=== PATIENT | male | born 1945 | race Caucasian/White ===

== ENCOUNTER 2017-05-19 06:11 | Inpatient (IN) ==
[2017-05-14 12:51] LABS: Appearance,Urine CLEAR; Bilirubin,Urine NEG (NEG); Color,Urine YELLOW; Glucose,Urine (UA) NEGATIVE (NEG); Leukocyte Esterase,Urine NEG /uL (NEG); Nitrate,Urine NEG (NEG); Protein,Urine NEG (NEG); Specific Gravity,Urine 1.011 (1.000-1.035); Urine Blood NEG mg/dL (<0.03); Urobilinogen,Urine NEG (NEG)
[2017-05-14 13:33] LABS: Basophils # (Auto) 0 K/mcL (0.0-0.3); Basophils % (Auto) 0.5 % (0.0-2.0); Eosinophils # (Auto) 0.1 K/mcL (0.0-0.7); Eosinophils % (Auto) 2.1 % (0.0-7.0); Granulocytes % (Auto) 67.3 % (38.0-78.0); Lymphocytes # (Auto) 1.2 K/mcL (1.5-4.8); Lymphocytes % (Auto) 22.9 % (15.5-49.0); Mean Cell Volume 91.6 fL (80.0-100.0); Mean Corpuscular Hemoglobin 31.1 pg (26.0-34.0); Monocytes # (Auto) 0.4 K/mcL (0.1-0.9); Monocytes % (Auto) 7.2 % (1.0-12.0); Platelet Count 204 K/mcL (140-440); RBC 4.99 M/mcL (4.50-5.90); Red Cell Distribution Width 13.6 % (11.5-14.5)
[2017-05-14 13:54] LABS: Blood Urea Nitrogen 22 mg/dl (8-23)
[~2017-05-19 06:11] MED LIST: PREGABALIN 75 MG CAPSULE PO SCH; oxyCODONE 10 MG TAB.ER.12H PO SCH
[2017-05-19] MEDS ORDERED: KETOROLAC 30 MG, ROPIVACAINE HCL/PF 49.5 ML, EPINEPHrine 0.5 MG, 0.9 % SODIUM CHLORIDE ... IJ SCH (06:30)
[2017-05-19] MEDS: ACETAMINOPHEN 500 MG TABLET PO SCH (06:48)
[2017-05-19] MEDS: CELECOXIB 200 MG CAPSULE PO SCH (06:48)
[2017-05-19] MEDS: ceFAZolin 1 GM VIAL IV SCH ×4 (07:23→23:00)
[2017-05-19] MEDS ORDERED: ONDANSETRON 4 MG/2 ML VIAL IV ONE (07:50)
[2017-05-19] MEDS ORDERED: MIDAZOLAM 5 MG/5 ML VIAL IV ONE (07:50)
[2017-05-19] MEDS ORDERED: TRANEXAMIC ACID 1,000 MG/10 ML VIAL IV ONE (07:50)
[2017-05-19] MEDS ORDERED: PROPOFOL 200 MG/20 ML VIAL IV ONE (07:50)
[2017-05-19] MEDS ORDERED: LIDOCAINE HCL/PF 100 MG/5 ML SYRINGE IV ONE (07:50)
[2017-05-19] MEDS ORDERED: DEXAMETHASONE 10 MG/ML VIAL IV ONE (07:50)
[2017-05-19] MEDS ORDERED: ROPIVACAINE HCL/PF 20 ML VIAL IJ ONE (07:50)
[2017-05-19] MEDS ORDERED: GENTAMICIN SULFATE 800 MG/20 ML VIAL IR ONE (09:08)
[2017-05-19] MEDS ORDERED: NALOXONE HCL 0.4 MG/ML VIAL IV PRN (09:16)
[2017-05-19] MEDS ORDERED: PROMETHAZINE 25 MG/ML VIAL IV PRN (09:16)
[2017-05-19] MEDS ORDERED: diphenhydrAMINE 50 MG/ML VIAL IV PRN (09:16)
[2017-05-19] MEDS ORDERED: HYDROmorphone 2 MG/ML SYRINGE IV PRN ×2 (09:16→09:42)
[2017-05-19] MEDS ORDERED: FLUMAZENIL 0.1 MG/ML ML IV PRN (09:16)
[2017-05-19] MEDS ORDERED: BENZOCAINE/MENTHOL 1 LOZENGE PO PRN ×2 (09:16→09:42)
[2017-05-19] MEDS ORDERED: MEPERIDINE 25 MG/ML SYRINGE IV PRN (09:16)
[2017-05-19] MEDS ORDERED: LACTATED RINGERS 250 ML IV PRN (09:16)
[2017-05-19] MEDS ORDERED: METHOCARBAMOL 1,000 MG/10 ML VIAL IV PRN (09:16)
[2017-05-19] MEDS ORDERED: fentaNYL 100 MCG/2 ML VIAL IV PRN (09:16)
[2017-05-19] MEDS ORDERED: IPRATROPIUM/ALBUTEROL 3 ML AMPUL.NEB NEB PRN (09:16)
[2017-05-19] MEDS ORDERED: ONDANSETRON 4 MG/2 ML VIAL IV PRN ×2 (09:16→09:42)
[2017-05-19] MEDS ORDERED: LACTATED RINGERS 1,000 ML IV SCH (09:30)
[2017-05-19] MEDS ORDERED: POLYETHYLENE GLYCOL 3350 17 GM PACKET PO PRN (09:42)
[2017-05-19] MEDS ORDERED: FLEETS ADULT ENEMA PR PRN (09:42)
[2017-05-19] MEDS ORDERED: ACETAMINOPHEN 325 MG TABLET PO PRN (09:42)
[2017-05-19] MEDS ORDERED: TRANEXAMIC ACID 1,000 MG/10 ML VIAL IV SCH (09:42)
[2017-05-19] MEDS ORDERED: BISACODYL 10 MG SUPP.RECT PR PRN (09:42)
[2017-05-19] MEDS ORDERED: MAGNESIUM HYDROXIDE 30 ML ORAL.SUSP PO PRN (09:42)
[2017-05-19] MEDS ORDERED: ACETAMINOPHEN 500 MG TABLET PO PRN (09:46)
--- NOTE | 2017-05-19 10:32 | XRay Report ---
HISTORY: Reason for Exam:Post-Op Total Knee FINDINGS: There is a well positioned total knee prosthesis. No fracture is present. IMPRESSION: Well-positioned left knee prosthesis Interpreted and Authenticated by: Tay Kelly 05/19/17
[2017-05-19] MEDS: 0.45 % SODIUM CHLORIDE 1,000 ML IV SCH ×2 (11:50→20:41)
[2017-05-19] MEDS: KETOROLAC 15 MG/ML VIAL IV SCH ×3 (11:50→23:47)
[2017-05-19] MEDS: 0.9 % SODIUM CHLORIDE 10 ML SYRINGE IV SCH ×2 (14:20→21:18)
--- NOTE | 2017-05-19 14:30 | Operative Note ---
DATE OF OPERATION: 05/19/2017 PREOPERATIVE DIAGNOSIS: Left knee degenerative arthritis, severe, of the medial compartment and patellofemoral joint. POSTOPERATIVE DIAGNOSIS: Left knee degenerative arthritis, severe, of the medial compartment and patellofemoral joint. PROCEDURE: Left total knee arthroplasty using the Impact robot. SURGEON: Da Khan M.D. COFFEE TASTER: Javier Dobbs PA-C. ANESTHESIA: General LMA anesthesia. COMPLICATIONS: None. TOURNIQUET TIME: Approximately 72 minutes. IMPLANTS: Size 6 femur, size 6 tibial baseplate with a 9 mm poly and a 38 mm patellar button. DESCRIPTION OF PROCEDURE: The patient was brought to the operating room and put to sleep with general LMA anesthesia. Once asleep, the patient had the left leg sterilely prepped and draped in the usual sterile fashion. Once done, we then exsanguinated the leg and inflated the tourniquet to 250 pounds of pressure. A timeout was performed and confirmed the operative site. Preop antibiotics and tranexamic acid had been given and then we made the midline incision. A mid vastus approach performed and exposed the joint. This showed severe arthritis of the medial compartment and to a lesser degree the trochlear groove. With this, we decided to proceed with a total knee arthroplasty. Two pins above and below the knee with the arrays were placed. We registered the hip center of rotation, the medial and lateral malleolus and intraarticular pins. Thirty points on the femur and tibia were registered, and then we balanced the knee at 15 degrees and 90 degrees. Once the robot was used to readjust the implants to make this perfectly balanced, we irrigated thoroughly and then brought in the robot. We registered the robot and made our distal femoral cut and our posterior chamfer cut. We changed the saw blade then made our anterior and posterior cuts, as well as our anterior chamfer cut. The tibial cut was made. The bony fragments were removed and remnants of the meniscus removed. We then tapped into place a size 6 tibial baseplate and set rotation using the robot. We then placed a 6 femur. A 9 mm poly seemed to be the most appropriate with a negative 3 degrees extension. He started at negative 4 degrees. This balanced very nicely. We irrigated thoroughly and then prepared the patella. It measured 28 mm in thickness. This was cut to 16 mm and then placed an oval eccentric 38 mm patellar button. Once placed, we then cemented into place the above-mentioned sizes using a CarboJet. Once the implants were in place, excess cement was removed. The capsule had been injected with a post-injection formula. We then closed the mid vastus approach with #1 Stratafix x2, closed the skin with 2-0 Vicryl and adhesive closure. Portals were closed with adhesive closure. The arrays were removed, as well as the pins and intraarticular pins had been removed. The patient tolerated this well. Pin counts were correct. Sterile bandage applied. Tourniquet time was 72 minutes. RBH:samm Job ID: [id number] Doc ID: [id number] Da Khan MD
[2017-05-19] MEDS: DOCUSATE SODIUM 100 MG CAPSULE PO SCH (20:41)
[2017-05-19] MEDS: ASPIRIN 325 MG ENTERIC COATED TABLET PO SCH (20:41)
[2017-05-19] MEDS ORDERED: TEMAZEPAM 15 MG CAPSULE PO PRN (21:00)
[2017-05-19] MEDS ORDERED: SENNOSIDES 1 TABLET PO SCH (21:00)
[2017-05-19] MEDS: HYDROcodone/APAP 10/325MG TABLET PO PRN (23:05)
[2017-05-20] MEDS: 0.9 % SODIUM CHLORIDE 10 ML SYRINGE IV SCH ×2 (06:01→12:07)
[2017-05-20] MEDS: KETOROLAC 15 MG/ML VIAL IV SCH ×2 (06:02→12:07)
[2017-05-20] MEDS: 0.45 % SODIUM CHLORIDE 1,000 ML IV SCH (06:04)
--- NOTE | 2017-05-20 07:42 | Orthopedic Progress Note ---
Subjective Patient information: Note initiated : 05/20/17 at 7:41 am Service Date, if different from initiated Date: [] Patient: Max Ruggiero 72 y/o M admitted on 05/19/17 for Left Uni Medial Tr Knee vs Total Knee Arthroplas. Chief Complaint: [Pt is stable this morning on post operative day 1 without any significant concerns or complaints. Patients vital signs have remained stable. Patients dressing is dry and exhibits a grossly intact neurovascular and neuromotor exam. Patients 10 point ROS is otherwise negative. ] Objective Vital signs: Vital Signs Temp Pulse Resp BP Pulse Ox 05/20/17 07:30 93 05/20/17 04:00 97.8 F 60 14 118/66 94 05/20/17 00:00 98.5 F 65 14 119/64 94 05/19/17 21:00 95 05/19/17 20:00 97.5 F 73 14 149/78 98 05/19/17 19:30 98 05/19/17 17:00 95 05/19/17 15:20 98 F 18 131/79 99 05/19/17 13:32 97.8 F 120/80 99 05/19/17 13:15 98 05/19/17 12:35 143/82 97 05/19/17 12:05 128/73 93 05/19/17 11:35 142/79 95 05/19/17 11:33 95 05/19/17 11:20 141/77 94 05/19/17 11:05 142/84 93 05/19/17 10:50 96.6 F L 12 156/87 92 05/19/17 10:45 97.2 F 60 12 126/70 91 05/19/17 10:30 60 11 L 117/72 96 05/19/17 10:15 68 10 L 124/68 97 05/19/17 10:02 96.2 F L 75 12 135/76 97 Intake and Output 05/19/17 05/20/17 05/20/17 21:59 05:59 13:59 Intake Total 1525 / 1525 950 / 950 240 / 240 Output Total 1940 / 194 850 / 850 320 / 320 Balance -416 / -416 100 / 100 -80 / -80 Intake: IV 885 / 885 Sodium Chloride 0.45% 1,000 ml 885 / 885 @ 100 mls/hr IV .Q10H NICA Rx#: [id number] Oral 640 / 640 950 / 950 240 / 240 Output: Urine Catheter Amount 750 / 750 Void Amount 1190 / 1190 850 / 850 320 / 320 # of times incontinent of urine Other: Meal Dinner Percent of Meal Consumed 100% Feeding Ability Independent # Voids 1 1 Weight 208 lb Intake & Output: Intake & Output 05/19/17 05/20/17 05/20/17 21:59 05:59 13:59 Intake Total 1525 / 1525 950 / 950 240 / 240 Output Total 1941 / 1941 850 / 850 320 / 320 Balance -416 / -416 100 / 100 -80 / -80 Weight 208 lb Intake: IV 885 / 885 Sodium Chloride 0.45% 1,000 ml 885 / 885 @ 100 mls/hr IV .Q10H NICA Rx#: [id number] Oral 640 / 640 950 / 950 240 / 240 Output: Urine Catheter Amount 750 / 750 Void Amount 1190 / 1190 850 / 850 320 / 320 # of times incontinent of urine Other: Meal Dinner Percent of Meal Consumed 100% Feeding Ability Independent # Voids 1 1 Incision: Yes healing Incision clean and dry: Yes Dressing: Yes clean, Yes dry Weight bearing status: full Neurological exam IM: Yes motor sensory intact, Yes neurovascular intact Extremities exam IM: Yes Foot pink and warm, Yes neurovascular intact - Labs CBC & BMP: 05/20/17 05:19 05/14/17 11:25 Labs: Orthopedic Labs 05/14/17 11:25 PT 13.3 INR 1.0 APTT 28 05/20/17 05/14/17 05:19 11:25 Hgb 15.5 Hct 39.4 L 45.7 Assessment and Plan (1) Hx of total knee arthroplasty The patient has been educated regarding dressing care, Physical Therapy recommendations, home exercises, restrictions, and follow up appointments. The patient has had all necessary DME prescribed. The patient has remained stable during their hospital course. The patient was discharge with a stable exam Leave Dermabond patch intact until followup . Status: Acute
--- NOTE | 2017-05-20 07:45 | Discharge Summary ---
Ortho Discharge - [facility] - Patient Instructions Diet: Regular Diet Activity: activity as tolerated, weight bearing as tolerated Total Knee Protocol: For Total Knee: Start ROM JOSE F with stationary bike or rocking chair. Work on gaining full extension of knee. Posterior dislocation precautions provided. Hip abductor strengthening and gait training instructions provided. Apply Cryocuff as instructed. Dressing Care: May shower in 2 days Patient Education: Total Knee Replacement (DC) Additional Instructions: CPM for home use. - Problem Maintenance (1) Hx of total knee arthroplasty Status: Acute - Follow Up Plan Disposition: Home, Self-Care Prognosis: Good Rehab Potential: Good I certify that the patient requires SNF services: No Overall status at discharge: patient is progressing back to baseline - Orders For Discharge Prescriptions: Aspirin [Ecotrin] 325 mg PO BID #60 tab.ec Docusate Sodium [Colace] 100 mg PO BID #60 cap HYDROcodone/APAP 10/325MG [[place] 10/325Mg] 1 - 2 tab PO Q4HP PRN #75 tab PRN Reason: Pain
[2017-05-20] MEDS ORDERED: FERROUS SULFATE 325 MG TABLET PO SCH (08:00)
[2017-05-20] MEDS: DOCUSATE SODIUM 100 MG CAPSULE PO SCH (09:16)
[2017-05-20] MEDS: HYDROcodone/APAP 10/325MG TABLET PO PRN ×3 (09:17→14:54)
[2017-05-20] MEDS: ASPIRIN 325 MG ENTERIC COATED TABLET PO SCH (09:17)
[2017-05-20] MEDS ORDERED: FLU VACC QS2017-18 36MOS UP/PF 60 MCG/0.5 ML SYRINGE IM ONE (10:00)
== END 2017-05-20 16:25 | disposition home or self-care (01) | DRG 470 ==
LOC: SUR 06:11 → MEDSUR 11:33
PROVIDERS: ADMIT Orthopaedic Surgery; ATTEND Orthopaedic Surgery

== ENCOUNTER 2018-07-29 10:00 | Inpatient (IN) ==
[2018-07-29 12:42] LABS: Appearance,Urine CLEAR; Bacteria,Urine 0 /hpf (0); Bilirubin,Urine NEG (NEG); Color,Urine YELLOW; Glucose,Urine (UA) NEGATIVE (NEG); Leukocyte Esterase,Urine NEG /uL (NEG); Mucus,Urine FEW /hpf (0); Protein,Urine NEG (NEG); Specific Gravity,Urine 1.016 (1.000-1.035); Urine Blood NEG mg/dL (<0.03); Urine RBC 0 /hpf (0-1); Urine Squamous Epithelial Cell 0 /hpf (0-4); Urine WBC < 1 /hpf (0-4); Urobilinogen,Urine NEG (NEG)
[2018-07-29 13:25] LABS: Blood Urea Nitrogen 19 mg/dl (8-23)
[2018-07-29 13:32] LABS: Basophils # (Auto) 0 K/mcL (0.0-0.3); Basophils % (Auto) 0.3 % (0.0-2.0); Eosinophils # (Auto) 0.1 K/mcL (0.0-0.7); Eosinophils % (Auto) 1.6 % (0.0-7.0); Granulocytes % (Auto) 71.9 % (38.0-78.0); Lymphocytes # (Auto) 0.9 K/mcL (1.5-4.8); Lymphocytes % (Auto) 19.1 % (15.5-49.0); Mean Cell Volume 87.4 fL (80.0-100.0); Mean Corpuscular HGB Conc 35.3 g/dL (31.0-36.0); Monocytes # (Auto) 0.3 K/mcL (0.1-0.9); Monocytes % (Auto) 7.1 % (1.0-12.0); Platelet Count 172 K/mcL (140-440); RBC 5.24 M/mcL (4.50-5.90); Red Cell Distribution Width 12.6 % (11.5-14.5)
[2018-08-03] MEDS ORDERED: CELECOXIB 200 MG CAPSULE PO SCH (07:00)
[2018-08-03] MEDS ORDERED: ceFAZolin 1 GM VIAL IV SCH (07:00)
[2018-08-03] MEDS ORDERED: PREGABALIN 75 MG CAPSULE PO SCH (07:00)
[2018-08-03] MEDS ORDERED: 0.9 % SODIUM CHLORIDE 9 ML, KETOROLAC 30 MG, ROPIVACAINE HCL/PF 49.5 ML, EPINEPHrine 0.... IJ SCH (07:00)
[2018-08-03] MEDS ORDERED: ACETAMINOPHEN 500 MG TABLET PO SCH (07:00)
[2018-08-03] MEDS ORDERED: oxyCODONE 10 MG TAB.ER.12H PO SCH (07:00)
[2018-08-03] MEDS ORDERED: PROPOFOL 200 MG/20 ML VIAL IV ONE (12:22)
[2018-08-03] MEDS ORDERED: ePHEDrine 50 MG/ML AMPUL IV ONE (12:22)
[2018-08-03] MEDS ORDERED: DEXAMETHASONE 10 MG/ML VIAL IV ONE (12:22)
[2018-08-03] MEDS ORDERED: LIDOCAINE HCL/PF 100 MG/5 ML SYRINGE IV ONE (12:22)
[2018-08-03] MEDS ORDERED: TRANEXAMIC ACID 1,000 MG/10 ML VIAL IV ONE ×2 (12:22→15:14)
[2018-08-03] MEDS ORDERED: MIDAZOLAM 5 MG/5 ML VIAL IV ONE (12:22)
[2018-08-03] MEDS ORDERED: ONDANSETRON 4 MG/2 ML VIAL IV ONE (12:22)
[2018-08-03] MEDS ORDERED: GENTAMICIN SULFATE 800 MG/20 ML VIAL IR ONE (13:38)
[2018-08-03] MEDS ORDERED: ONDANSETRON 4 MG/2 ML VIAL IV PRN ×2 (14:13→15:14)
[2018-08-03] MEDS ORDERED: IPRATROPIUM/ALBUTEROL 3 ML AMPUL.NEB NEB PRN (14:13)
[2018-08-03] MEDS ORDERED: diphenhydrAMINE 50 MG/ML VIAL IV PRN (14:13)
[2018-08-03] MEDS ORDERED: PROMETHAZINE 25 MG/ML VIAL IV PRN (14:13)
[2018-08-03] MEDS ORDERED: LACTATED RINGERS 250 ML IV PRN (14:13)
[2018-08-03] MEDS ORDERED: BENZOCAINE/MENTHOL 1 LOZENGE PO PRN ×2 (14:13→15:14)
[2018-08-03] MEDS ORDERED: FLUMAZENIL 0.1 MG/ML ML IV PRN (14:13)
[2018-08-03] MEDS ORDERED: MEPERIDINE 25 MG/ML SYRINGE IV PRN (14:13)
[2018-08-03] MEDS ORDERED: HYDROmorphone 2 MG/ML VIAL IV PRN ×2 (14:13→15:14)
[2018-08-03] MEDS ORDERED: fentaNYL 100 MCG/2 ML VIAL IV PRN (14:13)
[2018-08-03] MEDS ORDERED: NALOXONE HCL 0.4 MG/ML VIAL IV PRN (14:13)
[2018-08-03] MEDS ORDERED: LACTATED RINGERS 1,000 ML IV SCH (14:15)
--- NOTE | 2018-08-03 15:04 | XRay Report ---
CLINICAL INFORMATION: total hip COMPARISON: None. FINDINGS: Intraoperative film shows right femoral stem template and acetabular prostheses but no prostatic femoral head. Relationships appear anatomic - no osseous abnormalities IMPRESSION: Negative Interpreted and Authenticated by: David Lao 08/03/18
--- NOTE | 2018-08-03 15:13 | Brief Operative Note ---
Date of procedure: 08/03/18 Pre-op diagnosis: right hip djd severe Post-op diagnosis: same Procedure: right yunior cemented stem Grafts/Implants: Yes Anesthesia: GETA Complications: none Surgeon: Da Khan Hand Salter: Javier Dobbs Estimated blood loss (cc): 120 Specimens Removed/Pathology: none sent Condition: stable Disposition: PACU
[2018-08-03] MEDS ORDERED: MAGNESIUM HYDROXIDE 30 ML ORAL.SUSP PO PRN (15:14)
[2018-08-03] MEDS ORDERED: POLYETHYLENE GLYCOL 3350 17 GM PACKET PO PRN (15:14)
[2018-08-03] MEDS ORDERED: TEMAZEPAM 15 MG CAPSULE PO PRN (15:14)
[2018-08-03] MEDS ORDERED: KETOROLAC 15 MG/ML VIAL IV PRN (15:14)
[2018-08-03] MEDS ORDERED: ACETAMINOPHEN 325 MG TABLET PO PRN (15:14)
[2018-08-03] MEDS ORDERED: FLEETS ADULT ENEMA PR PRN (15:14)
[2018-08-03] MEDS ORDERED: BISACODYL 10 MG SUPP.RECT PR PRN (15:14)
--- NOTE | 2018-08-03 15:21 | XRay Report ---
CLINICAL INFORMATION: post hip surgery COMPARISON: None. FINDINGS: Immediate postoperative film shows the prosthetic right femoral head to be subluxed laterally and superiorly with respect to the prosthetic acetabulum. No osseous abnormality. Both SI and left hip joints are normal. Soft tissue swelling over the surgical site seen at the expected IMPRESSION: Subluxation of the right total hip prosthesis Interpreted and Authenticated by: David Lao 08/03/18
--- NOTE | 2018-08-03 15:55 | Operative Note ---
DATE OF OPERATION: 08/03/2018 PREOPERATIVE DIAGNOSIS: Right hip degenerative arthritis. POSTOPERATIVE DIAGNOSIS: Right hip degenerative arthritis. PROCEDURE: Right total hip arthroplasty with a cemented stem and cementless cup, hooded liner with a +5, 36 mm ceramic head with a size 5 cemented stem. SURGEON: Da Khan MD IT APPLICATION ADMINISTRATOR: Javier Dobbs PA-C COMPLICATIONS: None. ESTIMATED BLOOD LOSS: About 120 mL. IMPLANTS: A size 58 acetabular cup with a 36 mm hooded liner for the 58 mm cup. The stem was a size 5 cemented stem with a 30 mm neck length and a +5 neck length on this ceramic head, 36 mm in diameter. DESCRIPTION OF PROCEDURE: The patient was brought to the operating room and put to sleep with general anesthesia. Once asleep, the patient had the right hip sterilely prepped and draped in the usual sterile fashion. A timeout was performed. We confirmed the right hip as the operative site. We placed a superior approach to the hip about a 4 inch incision. We dissected through the muscle layer, identifying the fascial layer. This was then sized. It had been confirmed that the patient did receive tranexamic acid and antibiotics prior to the incision and we entered the capsule, releasing the piriformis and obturator internus and then subluxed the hip superiorly. Once done, we made our quique for the center of hip rotation, made our cut for a 30 neck cut and this was done. We then reamed up to the size 58 and implanted a 58 cup, placed a 35 mm screw with good fixation and placed a 58 mm liner for a 36 mm head with a hooded liner. This was placed inferiorly for any instability. We then prepared the femur. Note that the cup was placed in a position of 20 degrees of anteversion and approximately 40 degrees of inclination using the alignment guide. We then prepared of the femur. The femur had been prepared for a size 5 stem. This was broached up and a trial placed. We then took an intraoperative x-ray showing perfect leg length bilaterally and well positioned cup. Once this was all confirmed, we then cemented into place the cemented stem. The cemented stem fit very nicely and because it was able to sit closer to the bone we did place a plus on the neck length. We trialed the 2.5+ and this was less stable. We were still able to get up to 85 degrees without any posterior or anterior dislocation. We were able to go to a +5 on the neck length and this gave excellent reduction. This was reduced with a +5 ceramic head after trialing the components and cementing into place a size 5 stem with a distal centralizer of 11 mm. A canal restrictor was placed at 140 mm. We pressurized the cement and placed the size 5 femoral stem. This was cemented into place, and the calcar matched our anatomy perfectly. This was sitting down on the bone and was perfectly positioned in 15 degrees of anteversion with the stem. We trialed the neck lengths, again as noted a 0, 2.5 and a 5, the being the most appropriate for stability and alignment. This was stable up to 90 degrees of internal rotation. We tested anterior stability as well to make sure there was no impingement. We irrigated thoroughly and closed the capsule. The capsular closure was performed using a #2 Ethibond stitch. Once this was closed, we irrigated thoroughly and then repaired the fascial layer with #1 Stratafix. The skin was closed with 2-0 Vicryl and adhesive closure. The patient tolerated this well. He left the operating room in good condition. No complication during the case. Blood loss was about 120 mL. RBH:taz Job ID: [id number] Doc ID: [id number] Da Khan MD
[2018-08-03] MEDS: 0.45 % SODIUM CHLORIDE 1,000 ML IV SCH (16:15)
[2018-08-03] MEDS: HYDROcodone/APAP 10/325MG TABLET PO PRN ×2 (17:36→21:19)
[2018-08-03] MEDS: ASPIRIN 325 MG ENTERIC COATED TABLET PO SCH (20:37)
[2018-08-03] MEDS: ceFAZolin 1 GM VIAL IV SCH (20:37)
[2018-08-03] MEDS: DOCUSATE SODIUM 100 MG CAPSULE PO SCH (20:37)
[2018-08-03] MEDS: 0.9 % SODIUM CHLORIDE 10 ML SYRINGE IV SCH (20:37)
[2018-08-03] MEDS ORDERED: SENNOSIDES 1 TABLET PO SCH (21:00)
[2018-08-04] MEDS: HYDROcodone/APAP 10/325MG TABLET PO PRN ×3 (01:04→09:34)
[2018-08-04] MEDS: 0.45 % SODIUM CHLORIDE 1,000 ML IV SCH (01:08)
[2018-08-04] MEDS: ceFAZolin 1 GM VIAL IV SCH (04:11)
[2018-08-04] MEDS: 0.9 % SODIUM CHLORIDE 10 ML SYRINGE IV SCH (04:16)
--- NOTE | 2018-08-04 07:25 | Orthopedic Progress Note ---
Subjective Patient information: Note initiated : 08/04/18 at 7:25 am Service Date, if different from initiated Date: [] Patient: Max Ruggiero 73 y/o M admitted on 08/03/18 for Right Total Hip Arthroplasty. Chief Complaint: [Pt is stable this morning on post operative day 1 without any significant concerns or complaints. Patients vital signs have remained stable. Patients dressing is dry and is grossly intact from a neurovascular and motor standpoint. Patients 10 point ROS is otherwise negative. ] Objective Vital signs: Vital Signs Temp Pulse Resp BP BP Pulse Ox 08/04/18 04:31 93 08/04/18 04:08 97.3 F 62 16 97/59 94 08/04/18 03:00 94 08/04/18 01:06 92 08/03/18 23:22 92 08/03/18 23:21 97.3 F 71 18 117/72 92 08/03/18 21:13 92 08/03/18 19:42 97.4 F 76 16 112/70 95 08/03/18 19:00 95 08/03/18 17:25 66 114/62 94 08/03/18 17:13 93 08/03/18 16:55 60 119/61 95 08/03/18 16:25 62 120/67 95 08/03/18 16:10 58 L 123/67 92 08/03/18 15:55 62 121/69 94 08/03/18 15:53 95 08/03/18 15:40 63 128/69 95 08/03/18 15:25 96.1 F L 65 14 128/71 90 08/03/18 15:03 96.7 F L 68 15 114/71 99 08/03/18 14:48 96.5 F L 67 13 143/54 100 08/03/18 14:43 66 11 L 123/59 98 08/03/18 14:38 66 13 133/67 99 08/03/18 14:33 97.3 F 78 14 144/67 100 08/03/18 10:21 97.4 F 60 14 110/75 99 Intake and Output 08/03/18 08/04/18 08/04/18 21:59 05:59 13:59 Intake Total 2600 / 3950 1350 / 3950 Output Total 935 / 1435 500 / 1435 Balance 1665 / 2515 850 / 2515 Intake: IV 1800 / 2800 1000 / 2800 Sodium Chloride 0.45% 1,000 ml 1000 / 1000 @ 100 mls/hr IV .Q10H NICA Rx#: [id number] Lactated Ringers 1,000 ml @ 20 1800 / 1800 mls/hr IV .Q24H NICA Rx#: [id number] Oral 800 / 1150 350 / 1150 Output: Void Amount 735 / 1235 500 / 1235 Estimated Blood Loss 200 / 200 Other: Meal Dinner Percent of Meal Consumed 100% Urine Appearance Clear Urine Color Dark Yellow Urine Odor Normal Weight 207 lb Intake & Output: Intake & Output 08/03/18 08/04/18 08/04/18 21:59 05:59 13:59 Intake Total 2600 / 3950 1350 / 3950 Output Total 935 / 1435 500 / 1435 Balance 1665 / 2515 850 / 2515 Weight 207 lb Intake: IV 1800 / 2800 1000 / 2800 Sodium Chloride 0.45% 1,000 ml 1000 / 1000 @ 100 mls/hr IV .Q10H NICA Rx#: [id number] Lactated Ringers 1,000 ml @ 20 1800 / 1800 mls/hr IV .Q24H NICA Rx#: [id number] Oral 800 / 1150 350 / 1150 Output: Void Amount 735 / 1235 500 / 1235 Estimated Blood Loss 200 / 200 Other: Meal Dinner Percent of Meal Consumed 100% Urine Appearance Clear Urine Color Dark Yellow Urine Odor Normal Incision: Yes healing Incision clean and dry: Yes Dressing: Yes clean Weight bearing status: full Neurological exam IM: Yes motor sensory intact, Yes neurovascular intact Extremities exam IM: Yes Foot pink and warm, Yes neurovascular intact - Labs CBC & BMP: 08/04/18 04:40 07/29/18 10:51 Labs: Orthopedic Labs 07/29/18 10:51 PT 12.6 INR 0.9 APTT 29 08/04/18 07/29/18 04:40 10:51 Hgb 16.2 Hct 41.0 45.8 Assessment and Plan (1) Hx of total hip arthroplasty The patient has been educated regarding dressing care, Physical Therapy recommendations, home exercises, restrictions, and follow up appointments. The patient has had all necessary DME prescribed. The patient has remained relatively stable during their hospital course. Leave Dermabond patch intact until followup Status: Acute
--- NOTE | 2018-08-04 07:28 | Discharge Summary ---
Ortho Discharge - [place] - Patient Instructions Diet: Regular Diet Activity: activity as tolerated, weight bearing as tolerated Total Hip Protocol: Follow activity instructions as provided by Physical Therapy. Dressing Care: May shower in 2 days - Problem Maintenance (1) Hx of total hip arthroplasty Status: Acute - Follow Up Plan Follow Up Appointments: Javier Dobbs PA-C [Physician Escrow Secretary] - 08/18/18 10:50 am Disposition: Home, Self-Care Prognosis: Good Rehab Potential: Good I certify that the patient requires SNF services: No Overall status at discharge: patient is progressing back to baseline - Orders For Discharge Prescriptions: Aspirin [Ecotrin] 325 mg PO BID #60 tab.ec Docusate Sodium [Colace] 100 mg PO BID #60 capsule HYDROcodone/APAP 10/325MG [[place] 10-325Mg] 1 - 2 tab PO Q4HP PRN #75 tab PRN Reason: Pain Level 3-6
[2018-08-04] MEDS: ASPIRIN 325 MG ENTERIC COATED TABLET PO SCH (09:34)
[2018-08-04] MEDS: DOCUSATE SODIUM 100 MG CAPSULE PO SCH (09:34)
== END 2018-08-04 13:03 | disposition home or self-care (01) | DRG 470 ==
LOC: MEDSUR 08-03 10:03
PROVIDERS: ADMIT Orthopaedic Surgery; ATTEND Orthopaedic Surgery